=== PATIENT | female | born 1990 | race Caucasian/White ===

== ENCOUNTER 2019-08-21 15:36 | Emergency (ER) | payer MEDICAID ==
[~2019-08-21] VITALS: Ht 160 cm; Wt 52.0 kg
--- NOTE | 2019-08-21 16:02 | NUR ---
BIB [facility]. REPORT RECEIVED FROM [facility]. PT WAS WONDERING AT [facility]. +HALLCINATION. L2K PLACED BY [facility] TUBE AND ROD STRAIGHTENER.+ETOH/METH. HX OF SCHIZOPRENIA. DENIES SI/HI. PT IS AGITATED/ANXETY/RESTLESS NOTED AT THIS TIME. PT PLACED ON GOWN. ALL BELONGINGS PUT INTO ONE BAG AND PUT INTO THE LOCKER. PT'S AOX4. RESPS EVEN AND UNLABORED.
--- NOTE | 2019-08-21 16:12 | NUR ---
PT AWARES OF URINE SAMPLE. WATER PROVIDED.
[2019-08-21] MEDS ORDERED: ZIPRASIDONE 20 MG INJ IM ONE ×4 (16:16→22:30)
[2019-08-21] MEDS ORDERED: LORazepam 1MG TABLET ONE (16:17)
[2019-08-21] MEDS ORDERED: LORazepam 1MG TABLET PO ONE (16:30)
--- NOTE | 2019-08-21 16:31 | NUR ---
PT MEDICATED PER EMAR. PT TOLERATED WELL.
[2019-08-21 16:53] LABS: BASOPHILS # (AUTO) 0.05 x10^3/uL (0-0.1); BASOPHILS % (AUTO) 0 % (0-1); EOSINOPHILS # (AUTO) 0.06 x10^3/uL (0-0.4); EOSINOPHILS % (AUTO) 0 % (1-7); LYMPHOCYTES # (AUTO) 1.03 x10^3/uL (1-3.4); LYMPHOCYTES % (AUTO) 8 % (22-44); MD NO; MEAN CORPUSCULAR HEMOGLOBIN 32.8 pg (27.0-34.8); MEAN CORPUSCULAR VOLUME 96.4 fL (80-100); MEAN PLATELET VOLUME 7.3 fL (7.4-10.4); MONOCYTES % (AUTO) 4 % (2-9); NEUTROPHILS # (AUTO) 11.81 x10^3/uL (1.8-6.8); NEUTROPHILS % (AUTO) 87 % (42-75); PLATELET COUNT 303 x10^3/uL (130-400); RED BLOOD COUNT 4.17 x10^6/uL (3.82-5.3); RED CELL DISTRIBUTION WIDTH 12.8 % (9.6-15.2)
--- NOTE | 2019-08-21 16:55 | NUR ---
PT SLEEPING IN HOSPITAL BED AT THIS TIME. SITTER MONITORING FROM [facility]. ROOM REMAINS SECURE.
[2019-08-21 17:01] LABS: ALANINE AMINOTRANSFERASE 13 U/L (12-78); ALBUMIN 4.7 g/dL (3.4-5.0); ANION GAP 14 mmol/L (5-15); CALCIUM 9.3 mg/dL (8.5-10.1); CHLORIDE 107 mmol/L (98-107); CREATININE 2.27 mg/dL (0.55-1.02)
[2019-08-21 17:02] LABS: SALICYLATE LEVEL < 1.7 mg/dL (2.8-20.0)
[2019-08-21 17:06] LABS: ALKALINE PHOSPHATASE 55 U/L (45-117); BILIRUBIN,TOTAL 0.9 mg/dL (0.2-1.0); TOTAL PROTEIN 8.2 g/dL (6.4-8.2)
--- NOTE | 2019-08-21 17:28 | NUR ---
PIV EST ON R AC WITHOUT COMPLICATIONS. NS 2L INFUSING AT THIS TIME. PT TOLERATED WELL.
[2019-08-21] MEDS ORDERED: SODIUM CHLORIDE FLUSH 10ML SYR IVF ONE (17:30)
[2019-08-21] MEDS ORDERED: SODIUM CHLORIDE 0.9% 1,000ML IVBOLUS ONE (17:30)
--- NOTE | 2019-08-21 17:48 | NUR ---
PT'S MOTHER'S NUMBER [phone]
--- NOTE | 2019-08-21 17:53 | NUR ---
MEAL TRAY ORDERED AT THIS TIME.
--- NOTE | 2019-08-21 18:20 | NUR ---
MEAL TRAY PROVIDED.
--- NOTE | 2019-08-21 19:00 | NUR ---
REPORT GIVEN TO COLT SMITH.
[2019-08-21 19:46] VITALS: BP 109/76
--- NOTE | 2019-08-21 19:49 | NUR ---
PT RESTING CALMLY, DROWSY BUT AROUSES TO VERBAL RESPONSE. RESPIRATIONS EVEN AND UNLABORED, NAD, ROOM SECURED, SITTTER AT DOORWAY FOR CONTINOUS MONITORING
[2019-08-21 19:54] LABS: ANION GAP 9 mmol/L (5-15); CALCIUM 7.9 mg/dL (8.5-10.1); CHLORIDE 113 mmol/L (98-107); CREATININE 1.43 mg/dL (0.55-1.02)
--- NOTE | 2019-08-21 20:20 | NUR ---
PT RESTING IN BED, DROESY BUT OPENS EYES TO VERBAL RESPONSE, YORDAN PERKINS, NAD, RESPIRATIONS EVEN AND UNLABORED, SITTER AT DOORWAY FOR CONTINOUS MONITORING
[2019-08-21] MEDS ORDERED: D5%-0.9% NACL 1,000 ML IV ONE (20:30)
--- NOTE | 2019-08-21 21:18 | NUR ---
[facility]
--- NOTE | 2019-08-21 21:18 | NUR ---
REFUSED BY [facility].
--- NOTE | 2019-08-21 21:28 | NUR ---
pt resting with eyes closed, nad, equal chest rise/fall observed, iv fluids infusing, sitter at doorway for continous monitoring
--- NOTE | 2019-08-21 21:54 | NUR ---
RANDY RN AT [facility] ON TELEPHONE, UPDATED ON PT STATUS, RANDY TO TALK WITH MD AND CALL US BACK
--- NOTE | 2019-08-21 22:07 | NUR ---
urine sample taken to lab
--- NOTE | 2019-08-21 22:14 | NUR ---
PT UP IN HALLWAY, ANXIOUS, PACING AND STATED SHE SEES SOMEONE IN HER ROOM AND REFUSING TO GO BACK TO ROOM. PA UPDATED ORDER RECEIVED, SEE MAR
[2019-08-21 22:15] LABS: MICROSCOPIC NOT IND
[2019-08-21 22:20] LABS: CULTURE INDICATED? NO
--- NOTE | 2019-08-21 22:24 | NUR ---
PT ASSISTED BACK TO ROOM WITH ASSIST OF SECURITY, PT PLACED IN 4 PT RESTRAINTS, MEDICATED PER MAR
[2019-08-21 22:28] LABS: AMPHETAMINE SCREEN, URINE Positive (Negative); BARBITURATE SCREEN, URINE Negative (Negative); BENZODIAZEPINE SCREEN, URINE Positive (Negative); CANNABINOID SCREEN, URINE Negative (Negative); COCAINE SCREEN, URINE Negative (Negative); METHADONE SCREEN, URINE Negative (Negative); OPIATE SCREEN, URINE Negative (Negative)
[2019-08-21] MEDS ORDERED: CLON-364 PO (22:53)
[2019-08-21] MEDS ORDERED: GABA-827 PO (22:53)
[2019-08-21] MEDS ORDERED: HYDR50TA99 PO (22:53)
[2019-08-21] MEDS ORDERED: QUET200T4 PO (22:53)
[2019-08-21] MEDS ORDERED: LORazepam 2 MG/ML, 1ML ONE (22:58)
[2019-08-21] MEDS ORDERED: LORazepam 2 MG/ML, 1ML IVPush ONE (23:00)
--- NOTE | 2019-08-21 23:00 | NUR ---
pt remains agitated and attempting to pullout of restraints, stated " i see a virus in my room, it's not the coronavirus but you brethe it in, i really need to get out of here". this rn attempted to calm and reassure pt, pt became more agitated, erp updated on pt status, me to place order.
--- NOTE | 2019-08-21 23:07 | NUR ---
pt medicated per mar Addendum: 08/21/19 at 2307 by RICH edilma remains at doorway for continous monitoring
--- NOTE | 2019-08-21 23:23 | NUR ---
TP RN: RANDY FROM [facility] CALLED TO ACCEPT PT TO [facility]. ACCEPTING PHYSICIAN DR WHITFIELD. REPORT FROM [facility] TO ACCEPTING RN.
--- NOTE | 2019-08-21 23:35 | NUR ---
pt resting calmly, nad, denies needs, room secured, sitter at doorway for continous monitoring
[2019-08-22] MEDS ORDERED: D5%-0.9% NACL 1,000 ML IV ONE ×2 (00:30)
== END 2019-08-22 00:10 ==
LOC: ED 19:58
DX: F20.0 Paranoid schizophrenia (principal); E86.0 Dehydration; N17.9 Acute kidney failure, unspecified; Z87.891 Personal history of nicotine dependence
CPT/HCPCS: 36415; 80048; 80053; 80307; 81003; 82550; 84443; 84703; 85025; 99284; J2060; J3486; J7030; J7042